=== PATIENT | male | born 1940 | race Caucasian/White ===

== ENCOUNTER 2016-12-11 12:09 | Outpatient (CLI) | payer MEDICARE, OTHER | END 2016-12-11 12:10 | disposition home or self-care (01) | DX: K92.1 Melena (principal) ==

== ENCOUNTER 2016-12-11 12:57 | Inpatient (IN) | payer MEDICARE, OTHER ==
[2016-12-11] MEDS ORDERED: FAMOTIDINE 20 MG/50 ML 50 ML IV ONE ×2 (14:32→14:59)
[2016-12-11] MEDS ORDERED: SODIUM CHLORIDE 0.9% 1,000 ML IV ONE (14:32)
[2016-12-11] MEDS ORDERED: ONDANSETRON ODT 4 MG TABLET TL PRN (14:59)
[2016-12-11] MEDS ORDERED: SODIUM CHLORIDE FLUSH 0.9% 10 ML SYRINGE IVP PRN (14:59)
[2016-12-11] MEDS: PANTOPRAZOLE 40 MG VIAL IVP SCH (16:27)
[2016-12-11] MEDS ORDERED: ALBUTEROL NEB 2.5 MG/3 ML INH PRN (20:18)
[2016-12-11] MEDS ORDERED: rOPINIRole 1 MG TABLET PO SCH (21:00)
[2016-12-11] MEDS: METHADONE 5 MG TABLET PO SCH (21:06)
[2016-12-11] MEDS: SODIUM CHLORIDE FLUSH 0.9% 10 ML SYRINGE IVP SCH (21:07)
[2016-12-11] MEDS ORDERED: ACETAMINOPHEN 325 MG TABLET PO SCH (21:52)
[2016-12-11] MEDS ORDERED: diphenhydrAMINE 25 MG CAPSULE PO SCH (22:20)
[2016-12-12] MEDS: SODIUM CHLORIDE 0.9% 1,000 ML IV SCH ×4 (01:48→23:23)
[2016-12-12] MEDS: SODIUM CHLORIDE FLUSH 0.9% 10 ML SYRINGE IVP SCH ×3 (01:49→20:30)
[2016-12-12] MEDS: PANTOPRAZOLE 40 MG VIAL IVP SCH ×2 (06:34→16:09)
[2016-12-12] MEDS: rOPINIRole 1 MG TABLET PO SCH ×3 (08:43→20:26)
[2016-12-12] MEDS: POLYETHYLENE GLYCOL 3350 17 GM PACKET PO SCH (08:43)
[2016-12-12] MEDS: ACETAMINOPHEN 325 MG TABLET PO PRN ×2 (08:44→20:29)
[2016-12-12] MEDS: LOSARTAN 50 MG TABLET PO SCH (08:45)
[2016-12-12] MEDS: METHADONE 5 MG TABLET PO SCH (20:26)
[2016-12-13] MEDS: SODIUM CHLORIDE 0.9% 1,000 ML IV SCH ×2 (00:02→06:40)
[2016-12-13] MEDS: rOPINIRole 1 MG TABLET PO SCH ×3 (06:00→21:09)
[2016-12-13] MEDS: PANTOPRAZOLE 40 MG VIAL IVP SCH ×2 (06:00→17:00)
[2016-12-13] MEDS: SODIUM CHLORIDE FLUSH 0.9% 10 ML SYRINGE IVP SCH ×3 (06:39→21:09)
[2016-12-13] MEDS: DOCUSATE SODIUM 250 MG CAPSULE PO SCH (08:38)
[2016-12-13] MEDS: LOSARTAN 50 MG TABLET PO SCH (08:39)
[2016-12-13] MEDS: POLYETHYLENE GLYCOL 3350 17 GM PACKET PO SCH (08:39)
[2016-12-13] MEDS: SENNA 8.6 MG TABLET PO SCH (08:39)
[2016-12-13] MEDS: ACETAMINOPHEN 325 MG TABLET PO PRN ×3 (08:39→20:03)
[2016-12-13] MEDS: SODIUM/POTASSIUM/MAG SULFATES 354 ML PREP KIT PO SCH (20:03)
[2016-12-13] MEDS: METHADONE 5 MG TABLET PO SCH (21:09)
[2016-12-14] MEDS: SODIUM CHLORIDE 0.9% 1,000 ML IV SCH ×3 (01:48→09:31)
[2016-12-14] MEDS: PANTOPRAZOLE 40 MG VIAL IVP SCH (06:05)
[2016-12-14] MEDS: SODIUM CHLORIDE FLUSH 0.9% 10 ML SYRINGE IVP SCH ×2 (06:05→13:51)
[2016-12-14] MEDS: rOPINIRole 1 MG TABLET PO SCH ×3 (06:05→16:59)
[2016-12-14] MEDS: SODIUM/POTASSIUM/MAG SULFATES 354 ML PREP KIT PO SCH (07:59)
[2016-12-14] MEDS: LOSARTAN 50 MG TABLET PO SCH (08:16)
[2016-12-14] MEDS: POLYETHYLENE GLYCOL 3350 17 GM PACKET PO SCH (09:34)
[2016-12-14] MEDS: SENNA 8.6 MG TABLET PO SCH (09:34)
[2016-12-14] MEDS: DOCUSATE SODIUM 250 MG CAPSULE PO SCH (09:34)
[2016-12-14] MEDS ORDERED: MIDAZOLAM 2 MG/2 ML VIAL IVP ONE (13:59)
[2016-12-14] MEDS ORDERED: SODIUM CHLORIDE 0.9% 400 ML IV ONE (13:59)
[2016-12-14] MEDS ORDERED: fentaNYL 250 MCG/5 ML VIAL IVP ONE (13:59)
[2016-12-14] MEDS ORDERED: SODIUM CHLORIDE 0.9% 1,000 ML IV ONE ×2 (15:07)
[2016-12-15] MEDS ORDERED: PANTOPRAZOLE 40 MG TABLET PO SCH (07:00)
== END 2016-12-14 18:10 | disposition home or self-care (01) | DRG 378 ==
PROC: 30233N1 Transfusion of Nonautologous Red Blood Cells into Peripheral Vein, Percutaneous Approach (ICD-10-PCS; 2016-12-11)
PROC: 0DJD8ZZ Inspection of Lower Intestinal Tract, Via Natural or Artificial Opening Endoscopic (ICD-10-PCS; principal; 2016-12-14 13:15)
PROC: 0DB68ZX Excision of Stomach, Via Natural or Artificial Opening Endoscopic, Diagnostic (ICD-10-PCS; principal; 2016-12-14 13:15)
DX: K92.1 Melena (principal); D50.0 Iron deficiency anemia secondary to blood loss (chronic); D62 Acute posthemorrhagic anemia; F11.20 Opioid dependence, uncomplicated; I10 Essential (primary) hypertension; Z95.5 Presence of coronary angioplasty implant and graft; G25.81 Restless legs syndrome; Z79.891 Long term (current) use of opiate analgesic; Z87.891 Personal history of nicotine dependence; K59.09 Other constipation; K21.9 Gastro-esophageal reflux disease without esophagitis; K63.89 Other specified diseases of intestine; K57.30 Diverticulosis of large intestine without perforation or abscess without bleeding; K44.9 Diaphragmatic hernia without obstruction or gangrene; K64.8 Other hemorrhoids; M19.90 Unspecified osteoarthritis, unspecified site; Z79.82 Long term (current) use of aspirin

== ENCOUNTER 2016-12-16 09:13 | Emergency (ER) | payer MEDICARE, OTHER ==
[2016-12-16] MEDS ORDERED: FUROSEMIDE 40 MG/4 ML VIAL IVP STA (09:51)
[2016-12-16] MEDS ORDERED: FUROSEMIDE 40 MG/4 ML VIAL ONE (10:26)
== END 2016-12-16 12:50 | disposition home or self-care (01) ==
DX: D50.0 Iron deficiency anemia secondary to blood loss (chronic) (principal); R60.9 Edema, unspecified; I10 Essential (primary) hypertension; I25.10 Atherosclerotic heart disease of native coronary artery without angina pectoris; M19.90 Unspecified osteoarthritis, unspecified site; Z79.82 Long term (current) use of aspirin; Z87.891 Personal history of nicotine dependence

== ENCOUNTER 2016-12-22 09:59 | Outpatient (CLI) | payer MEDICARE, OTHER | END 2016-12-22 10:00 | disposition home or self-care (01) | DX: K92.2 Gastrointestinal hemorrhage, unspecified (principal) ==

== ENCOUNTER 2017-01-15 09:10 | Outpatient (CLI) | payer MEDICARE, OTHER | END 2017-01-15 09:11 | disposition home or self-care (01) | DX: K92.2 Gastrointestinal hemorrhage, unspecified (principal) ==

== ENCOUNTER 2017-05-24 08:48 | Outpatient (CLI) | payer MEDICARE, OTHER ==
[2017-05-24 14:57] LABS: BASOPHILS % (AUTO) 0.5 %; EOSINOPHILS # (AUTO) 0.2 10^3/uL (0.0-0.7); EOSINOPHILS % (AUTO) 4.2 %; HCT - HEMATOCRIT 44.4 % (42.0-52.0); HGB - HEMOGLOBIN 14.9 g/dL (14.0-18.0); LYMPHOCYTES % (AUTO) 19.9 %; MEAN CORPUSCULAR HEMOGLOBIN 31.2 pg (27.0-31.0); MEAN CORPUSCULAR HGB CONC 33.5 g/dL (32.0-36.0); MEAN CORPUSCULAR VOLUME 93.1 fL (80.0-94.0); MEAN PLATELET VOLUME 9.1 fL (7.4-11.4); MONOCYTES # (AUTO) 0.6 10^3/uL (0.0-1.0); MONOCYTES % (AUTO) 11.2 %; NEUTROPHILS # (AUTO) 3.3 10^3/uL (1.5-6.6); NEUTROPHILS % (AUTO) 64.2 %; RED BLOOD COUNT 4.76 10^6/uL (4.70-6.10); RED CELL DISTRIBUTION WIDTH 14.7 % (12.0-15.0); UNCORRECTED WHITE BLOOD COUNT 5.2 x10^3/uL; WHITE BLOOD COUNT 5.2 x10^3/uL (4.8-10.8)
[2017-05-24 15:13] LABS: ALBUMIN/GLOBULIN RATIO 1.5 (1.0-2.2); BILIRUBIN,TOTAL 1.1 mg/dL (0.2-1.0); BUN - BLOOD UREA NITROGEN 21 mg/dL (6-20); CALCIUM 9.2 mg/dL (8.5-10.3); CARBON DIOXIDE - CO2 29 mmol/L (21-32); CHLORIDE 100 mmol/L (101-111); CHOL/HDL RATIO 2.4 (<5.0); CHOLESTEROL 140 mg/dL; CREATININE 0.9 mg/dL (0.6-1.2); GFR - MDRD 82 (>89); GLUCOSE 72 mg/dL (70-100); HDL CHOLESTEROL 58 mg/dL; LDL/HDL RATIO 1.1 (<3.6); SODIUM 136 mmol/L (135-145); TRIGLYCERIDES 90 mg/dL; VLDL CHOLESTEROL 18 mg/dL
== END 2017-05-24 08:49 | disposition home or self-care (01) ==
LOC: LAB.R 08:48
PROVIDERS: ATTEND Internal Medicine
DX: K29.50 Unspecified chronic gastritis without bleeding (principal); I25.10 Atherosclerotic heart disease of native coronary artery without angina pectoris; I10 Essential (primary) hypertension; E78.5 Hyperlipidemia, unspecified; G25.81 Restless legs syndrome; Z79.899 Other long term (current) drug therapy
CPT/HCPCS: 80053; 80061; 82728; 85025

== ENCOUNTER 2018-06-17 08:00 | Outpatient (CLI) | payer MEDICARE, OTHER ==
[2018-06-17 13:59] LABS: BASOPHILS % (AUTO) 0.3 %; EOSINOPHILS # (AUTO) 0.1 10^3/uL (0.0-0.7); HGB - HEMOGLOBIN 15.5 g/dL (14.0-18.0); LYMPHOCYTES % (AUTO) 10.2 %; MEAN CORPUSCULAR HEMOGLOBIN 32.9 pg (27.0-31.0); MEAN CORPUSCULAR HGB CONC 34.3 g/dL (32.0-36.0); MEAN PLATELET VOLUME 8.9 fL (7.4-11.4); MONOCYTES % (AUTO) 9.5 %; NEUTROPHILS # (AUTO) 8.1 10^3/uL (1.5-6.6); PLT - PLATELET COUNT 255 10^3/uL (130-450); RED CELL DISTRIBUTION WIDTH 13.2 % (12.0-15.0); WHITE BLOOD COUNT 10.3 x10^3/uL (4.8-10.8)
[2018-06-17 14:10] LABS: ALBUMIN/GLOBULIN RATIO 1.2 (1.0-2.2); ALKALINE PHOSPHATASE 49 IU/L (42-121); ALT ALANINE AMINOTRANSFERASE 27 IU/L (10-60); AST ASPARTATE AMINOTRANSFERASE 25 IU/L (10-42); BILIRUBIN,TOTAL 1.1 mg/dL (0.2-1.0); BUN - BLOOD UREA NITROGEN 20 mg/dL (6-20); CALCIUM 9.1 mg/dL (8.5-10.3); CARBON DIOXIDE - CO2 28 mmol/L (21-32); CHLORIDE 97 mmol/L (101-111); CHOL/HDL RATIO 2.7 (<5.0); CHOLESTEROL 137 mg/dL; CREATININE 0.9 mg/dL (0.6-1.2); GFR - MDRD 81 (>89); GLUCOSE 86 mg/dL (70-100); HDL CHOLESTEROL 50 mg/dL; LDL CHOLESTEROL,CALCULATED 68 mg/dL; LDL/HDL RATIO 1.4 (<3.6); SODIUM 132 mmol/L (135-145); TOTAL PROTEIN 7.3 g/dL (6.7-8.2); VLDL CHOLESTEROL 19 mg/dL
== END 2018-06-17 08:01 | disposition home or self-care (01) ==
LOC: LAB.R 08:00
PROVIDERS: ATTEND Internal Medicine
DX: I25.10 Atherosclerotic heart disease of native coronary artery without angina pectoris (principal); E78.5 Hyperlipidemia, unspecified; Z79.899 Other long term (current) drug therapy; Z12.5 Encounter for screening for malignant neoplasm of prostate; I10 Essential (primary) hypertension
CPT/HCPCS: 80053; 80061; 85025; G0103; 83721; 84153

== ENCOUNTER 2018-11-29 09:07 | Outpatient (CLI) | payer MEDICARE, OTHER | END 2018-11-29 09:08 | disposition home or self-care (01) | LOC: LAB 09:07 | PROVIDERS: ATTEND Family Medicine | DX: K29.50 Unspecified chronic gastritis without bleeding (principal); G25.81 Restless legs syndrome | CPT/HCPCS: 36415; 82728 ==

== ENCOUNTER 2019-09-17 09:03 | Outpatient (CLI) | payer MEDICARE, OTHER ==
[2019-09-17] MEDS ORDERED: BARIUM SULFATE 148 GM POWDER PO ONE (10:21)
[2019-09-17] MEDS ORDERED: BARIUM SULFATE 176 GM BOTTLE PO ONE (10:21)
[2019-09-17] MEDS ORDERED: SIMETHICONE/SOD BICARB/CIT AC 1 EACH PACKET PO ONE (10:21)
--- NOTE | 2019-09-17 17:45 | XRAY Report ---
Reason: REFLUX,ESOPHAGEAL,STRICTURE Procedure Date: 09/17/2019 Accession Number: [id number] / [id number] Procedure: FL - Esophogram CPT Code: Final Report FULL RESULT: EXAM: ESOPHAGRAM, FLUOROSCOPIC GUIDANCE EXAM DATE: 09/17/2019 09:22 AM. CLINICAL HISTORY: Reflux, esophageal stricture. COMPARISON: None. TECHNIQUE: Standard esophagram performed with thin and thick barium. Fluoroscopy Time: 2 minutes 24 seconds Images: 34. FINDINGS: The swallowing mechanism is initiated normally and the column of barium flows through the esophagus and into the stomach. A moderately large sliding hiatal spontaneous gastroesophageal reflux occurs, accentuated in the prone position. Moderate esophageal spasm occurs throughout the duration of the examination limiting full characterization of the mucosal surface. IMPRESSION: 1. Moderate sliding hiatal hernia with secondary gastroesophageal reflux. 2. Esophageal spasm throughout the duration of the examination limiting detailed evaluation of the mucosal surface. Consider endoscopy if warranted. RADIA
== END 2019-09-17 09:04 | disposition home or self-care (01) ==
LOC: DI 09:03
PROVIDERS: ATTEND Family Medicine
DX: K44.9 Diaphragmatic hernia without obstruction or gangrene (principal); K21.9 Gastro-esophageal reflux disease without esophagitis; K22.4 Dyskinesia of esophagus
CPT/HCPCS: 74220; A9270

== ENCOUNTER 2020-02-23 11:41 | Outpatient (CLI) | payer MEDICARE, OTHER ==
[2020-02-23 12:08] LABS: BASOPHILS % (AUTO) 0.2 %; EOSINOPHILS # (AUTO) 0.2 10^3/uL (0.0-0.7); EOSINOPHILS % (AUTO) 2.8 %; HGB - HEMOGLOBIN 14.4 g/dL (14.0-18.0); LYMPHOCYTES # (AUTO) 1.1 10^3/uL (1.5-3.5); LYMPHOCYTES % (AUTO) 18.2 %; MEAN CORPUSCULAR HGB CONC 33.2 g/dL (32.0-36.0); MEAN CORPUSCULAR VOLUME 93.5 fL (80.0-94.0); MEAN PLATELET VOLUME 10.5 fL (7.4-11.4); MONOCYTES # (AUTO) 0.7 10^3/uL (0.0-1.0); MONOCYTES % (AUTO) 10.8 %; NEUTROPHILS # (AUTO) 4.1 10^3/uL (1.5-6.6); NEUTROPHILS % (AUTO) 67.7 %; PLT - PLATELET COUNT 186 10^3/uL (130-450); RED BLOOD COUNT 4.64 10^6/uL (4.70-6.10); RED CELL DISTRIBUTION WIDTH 12.6 % (12.0-15.0); WHITE BLOOD COUNT 6.1 x10^3/uL (4.8-10.8)
[2020-02-23 12:24] LABS: ALBUMIN 4.2 g/dL (3.2-5.5); ALBUMIN/GLOBULIN RATIO 1.4 (1.0-2.2); CALCIUM 9.2 mg/dL (8.5-10.3); TOTAL PROTEIN 7.1 g/dL (6.7-8.2)
== END 2020-02-23 11:42 | disposition home or self-care (01) ==
LOC: LAB 11:41
PROVIDERS: ATTEND Family Medicine
DX: I10 Essential (primary) hypertension (principal); K21.9 Gastro-esophageal reflux disease without esophagitis; F11.10 Opioid abuse, uncomplicated; M47.892 Other spondylosis, cervical region; G25.9 Extrapyramidal and movement disorder, unspecified
CPT/HCPCS: 36415; 80053; 84443; 85025

== ENCOUNTER 2020-08-27 09:18 | Emergency (ER) | payer MEDICARE, OTHER ==
[2020-08-27 09:56] LABS: BASOPHILS % (AUTO) 0.3 %; EOSINOPHILS # (AUTO) 0.2 10^3/uL (0.0-0.7); EOSINOPHILS % (AUTO) 2.9 %; HGB - HEMOGLOBIN 14.8 g/dL (14.0-18.0); LYMPHOCYTES % (AUTO) 16.2 %; MEAN CORPUSCULAR HEMOGLOBIN 32.2 pg (27.0-31.0); MEAN CORPUSCULAR HGB CONC 34.1 g/dL (32.0-36.0); MEAN CORPUSCULAR VOLUME 94.3 fL (80.0-94.0); MEAN PLATELET VOLUME 10.2 fL (7.4-11.4); MONOCYTES # (AUTO) 0.7 10^3/uL (0.0-1.0); MONOCYTES % (AUTO) 11.4 %; NEUTROPHILS # (AUTO) 4.3 10^3/uL (1.5-6.6); NEUTROPHILS % (AUTO) 68.9 %; PLT - PLATELET COUNT 202 10^3/uL (130-450); RED CELL DISTRIBUTION WIDTH 12.2 % (12.0-15.0); WHITE BLOOD COUNT 6.3 x10^3/uL (4.8-10.8)
[2020-08-27 10:06] LABS: CALCIUM 9.1 mg/dL (8.5-10.3)
--- NOTE | 2020-08-27 10:50 | ED Physician Documentation ---
PD HPI LOWER EXT INJURY - Stated complaint Stated Complaint: RT LEG PX/SWELLING - Chief complaint Chief Complaint: Ext Problem - History obtained from History obtained from: Patient - History of Present Illness PD HPI LOW EXT INJURY LOCATION: Right, Lower leg, Ankle Type of injury: No: Fall, Twist (He noted onset of some pain in the right calf after a couple of long hikes 2 weeks ago. The pain has continued some with walking and he noticed some edema around the ankle. He presumed he overuse the muscles and would improve. However has persisted and increased swelling in le g/ankle few days.) Where injury occurred: Home Timing - onset: How many weeks ago (2) Timing - details: Gradual onset, Still present, Waxing and waning Improved by: Rest, Other (he says it actually feels better walking, feels stiff when first gets up and moving. Rest is good though.) Worsened by: Palpating. No: Moving Associated symptoms: Swelling. No: Weakness, Numbness, Discolored Contributing factors: No: Anticoagulated Similar symptoms before: Has not had sx before Recently seen: Not recently seen Review of Systems Constitutional: denies: Fever Nose: denies: Rhinorrhea / runny nose, Congestion Throat: denies: Sore throat Cardiac: denies: Chest pain / pressure, Palpitations Respiratory: reports: Dyspnea (some on exertion for several months). denies: Cough GI: denies: Nausea, Vomiting, Diarrhea Skin: denies: Rash, Lesions Neurologic: denies: Focal weakness, Numbness PD PAST MEDICAL HISTORY - Past Medical History Cardiovascular: Hypertension, Other (does not take statin meds) Respiratory: None Endocrine/Autoimmune: None GI: Chronic constipation : None HEENT: Chronic vision loss Psych: None Musculoskeletal: Osteoarthritis, Other Derm: None - Past Surgical History Past Surgical History: No Cardiovascular: Coronary stent - Present Medications Home Medications: Ambulatory Orders Medication Instructions Recorded Confirmed Methadone 2.5 - 5 mg PO QPM 09/24/13 12/16/16 Ropinirole HCl 1 mg PO TID 09/24/13 12/16/16 Losartan [Cozaar] 100 mg PO DAILY 08/16/15 12/16/16 Omeprazole 08/27/20 08/27/20 - Allergies Allergies/Adverse Reactions: Allergies Allergy/AdvReac Type Severity Reaction Status Date / Time No Known Drug Allergies Allergy Verified 08/27/20 09:29 - Social History Does the pt smoke?: No Smoking Status: Never smoker Does the pt drink ETOH?: Yes ETOH Use: Wine Does the pt have substance abuse?: No PD ED PE NORMAL - Vitals Vital signs reviewed: Yes - General General: Alert and oriented X 3, No acute distress, Well developed/nourished - Cardiac Cardiac: RRR, No murmur - Respiratory Respiratory: Clear bilaterally - Derm Derm: Normal color, Warm and dry - Extremities Extremities: Other (There is mild edema in the right lower leg and ankle. There is a bit of fullness in the calf and mild tenderness in the muscle to palpation. The left side is not tender and without any edema.) - Neuro Neuro: No motor deficit, No sensory deficit, Other (Good pulses color and capillary refill in the ankle and toes) Results - Vitals Vitals: Vital Signs - 24 hr 08/27/20 09:27 Temperature 36.6 C Heart Rate 68 Respiratory 18 Rate Blood Pressure 148/68 H O2 Saturation 99 Oxygen O2 Source Room air - Labs Labs: Laboratory Tests 08/27/20 08/27/20 08/27/20 09:50 09:50 09:50 WBC 6.3 RBC 4.60 L Hgb 14.8 Hct 43.4 MCV 94.3 H MCH 32.2 H MCHC 34.1 RDW 12.2 Plt Count 202 MPV 10.2 Neut # (Auto) 4.3 Lymph # (Auto) 1.0 L Charles # (Auto) 0.7 Eos # (Auto) 0.2 Baso # (Auto) 0.0 Absolute Nucleated RBC 0.00 Nucleated RBC % 0.0 ESR 7 Sodium 136 Potassium 4.2 Chloride 102 Carbon Dioxide 24 Anion Gap 10.0 BUN 23 H Creatinine 1.0 Estimated GFR (MDRD) 72 L Glucose 127 H Calcium 9.1 Total Creatine Kinase 56 B-Natriuretic Peptide 08/27/20 09:50 WBC RBC Hgb Hct MCV MCH MCHC RDW Plt Count MPV Neut # (Auto) Lymph # (Auto) Charles # (Auto) Eos # (Auto) Baso # (Auto) Absolute Nucleated RBC Nucleated RBC % ESR Sodium Potassium Chloride Carbon Dioxide Anion Gap BUN Creatinine Estimated GFR (MDRD) Glucose Calcium Total Creatine Kinase B-Natriuretic Peptide 182 H - Rads (name of study) duplex lower leg Radiology: See rad report, Other (discussed with tech - no DVT) PD MEDICAL DECISION MAKING - ED course Complexity details: reviewed results (Labs are normal. He states he actually feels better walking around so sounds like muscle stiffness. Does not sound like compartment syndrome. Not much pain with walking but aching later.), considered differential (Consider DVT and can get ultrasound. Consider myositis or muscle breakdown and can get some labs. Does not seem like fluid overload in general but can check creatinine and BNP. Presume muscle strain with some local inflammation and impedance of venous return.), d/w patient Departure - Departure Disposition: 01 Home, Self Care Clinical Impression: Strain of right calf muscle, Lower leg edema Clinical Impression: (Ruled Out): Deep vein thrombosis Condition: Stable Record reviewed to determine appropriate education?: Yes Instructions: ED Strain Muscle Ext Follow-Up: Endy Dickerson MD [Primary Care Provider] - Comments: No signs of blood clots nor muscle breakdown nor significant inflammation systemically. No signs of heart failure on your blood tests or an ultrasound. It sounds like you developed some inflammation or strain of the muscle in the calf and is just causing persistent pain and swelling. Elevate and rest your leg periodically through the day. Use a compressive sock or wrap to help with swelling in the ankle and leg. Consider an anti-inflammatory such as ibuprofen 400 mg 2-3 times a day for the next week or so. Tylenol if needed for pain. Recheck if not improved fully over the next week or so. Return if worsening
[2020-08-27 10:58] VITALS: BP 130/68
--- NOTE | 2020-08-27 11:03 | Ultrasound Report ---
PROCEDURE: Duplex Ext Veins Right INDICATIONS: right calf/lower leg swelling and pain for days/wk TECHNIQUE: Real-time imaging, as well as color and pulse Doppler interrogation, were performed of the lower extr emity deep veins from the inguinal ligament to the popliteal fossa. COMPARISON: None. FINDINGS: The deep veins are normally compressible, and free of intraluminal thrombus. Color and pu lse Doppler demonstrate normal phasic intraluminal flow. There is normal augmentation response to di stal compression maneuver. IMPRESSION: No sonographic evidence of DVT. Reviewed by: Parvez Moreno MD on 08/27/2020 10:01 AM [facility] Approved by: Parvez Moreno MD on 08/27/2020 10:01 AM [facility] Station ID: [id number]
== END 2020-08-27 11:07 | disposition home or self-care (01) ==
LOC: ED 09:18
DX: S86.911A Strain of unspecified muscle(s) and tendon(s) at lower leg level, right leg, initial encounter (principal); X58.XXXA Exposure to other specified factors, initial encounter; Y93.01 Activity, walking, marching and hiking; I10 Essential (primary) hypertension
CPT/HCPCS: 36415; 80048; 82550; 83880; 85025; 85651; 99284

== ENCOUNTER 2021-01-15 23:09 | Outpatient (CLI) | payer MEDICARE, OTHER | END 2021-01-15 23:10 | disposition EMS.NT | LOC: EMS 23:09 | DX: M25.561 Pain in right knee (principal) ==

== ENCOUNTER 2021-01-15 23:57 | Emergency (ER) | payer MEDICARE, OTHER ==
[2021-01-16] MEDS ORDERED: CHERRY SYRUP 10 ML UDC PO ONE (01:06)
[2021-01-16] MEDS ORDERED: KETOROLAC 60 MG/2 ML VIAL IM STA (01:06)
[2021-01-16] MEDS ORDERED: DEXAMETHASONE 10 MG/ML VIAL PO STA (01:06)
--- NOTE | 2021-01-16 01:07 | ED Physician Documentation ---
PD HPI LOWER EXT INJURY - Stated complaint Stated Complaint: R KNEE PX - Chief complaint Chief Complaint: Ext Problem - History obtained from History obtained from: Patient - History of Present Illness PD HPI LOW EXT INJURY LOCATION: Right, Knee Type of injury: Other (over use in the garden yesterday) Where injury occurred: Home Timing - onset: How many days ago (1) Timing - duration: Days (1) Timing - details: Gradual onset, Still present Improved by: Rest, Immobilization Worsened by: Moving, Palpating, Other (wieght bearing) Associated symptoms: Swelling. No: Weakness, Numbness, Tingling Contributing factors: No: Anticoagulated Similar symptoms before: Has not had sx before Recently seen: Not recently seen - Additional information Additional information: 80-year-old male with a history of hypertension and restless leg syndrome Was working out in his garden the day before yesterday and up and down a ladder as well and he has developed acute right knee pain. He is unable to bear weight on his knee and he has pain even with motion or movement of the of the knee. Review of Systems Constitutional: denies: Fever Eyes: denies: Decreased vision Ears: denies: Ear pain Nose: denies: Congestion Throat: denies: Sore throat Cardiac: denies: Chest pain / pressure Respiratory: denies: Cough GI: denies: Vomiting PD PAST MEDICAL HISTORY - Past Medical History Past Medical History: Yes Cardiovascular: Hypertension, Other Respiratory: None Endocrine/Autoimmune: None GI: Chronic constipation : None HEENT: Chronic vision loss Psych: None Musculoskeletal: Osteoarthritis, Other Derm: None Other Past Medical History: RLS - Past Surgical History Past Surgical History: No Cardiovascular: Coronary stent - Present Medications Home Medications: Ambulatory Orders Medication Instructions Recorded Confirmed Methadone [Methadone Hcl] 2.5 - 5 mg PO QPM 09/24/13 01/16/21 Ropinirole HCl 1 mg PO TID 09/24/13 01/16/21 Losartan [Cozaar] 100 mg PO DAILY 08/16/15 01/16/21 Omeprazole 40 mg PO DAILY 08/27/20 01/16/21 Aspirin Chewable [[place] 81 mg PO DAILY 01/16/21 01/16/21 Aspirin] Gabapentin [Neurontin] 100 mg PO DAILY 01/16/21 01/16/21 HYDROcod/ACETAM 5/325 [[place] 5/325] 1 - 2 tablet PO Q6H PRN #14 tablet 01/16/21 - Allergies Allergies/Adverse Reactions: Allergies Allergy/AdvReac Type Severity Reaction Status Date / Time No Known Drug Allergies Allergy Verified 01/16/21 00:10 - Social History Does the pt smoke?: No Smoking Status: Never smoker Does the pt drink ETOH?: Yes Does the pt have substance abuse?: No - Immunizations Immunizations are current?: Yes - POLST Patient has POLST: No PD ED PE NORMAL - Vitals Vital signs reviewed: Yes (hypertensive ) - General General: Alert and oriented X 3, No acute distress, Well developed/nourished - HEENT HEENT: Atraumatic, PERRL, EOMI - Respiratory Respiratory: No respiratory distress - Derm Derm: Normal color, Warm and dry, No rash - Extremities Extremities: No deformity, No edema, Other (The right knee is examined there is a palpable effusion. The patella is not ballotable. The ligaments are stable to testing. The joint is not warm or erythematous. The knee itself is not tender.) Results - Vitals Vitals: Vital Signs - 24 hr 01/16/21 00:07 Temperature 36.3 C L Heart Rate 56 L Respiratory 16 Rate Blood Pressure 149/85 H O2 Saturation 99 Oxygen O2 Source Room air - Rads (name of study) Knee Radiology: Prelim report reviewed (Impression: No acute findings. Nonemergent/incidental findings in the report.), EMP read indepedently, See rad report PD MEDICAL DECISION MAKING - ED course Complexity details: reviewed results, re-evaluated patient, considered differential, d/w patient ED course: 80-year-old male with acute knee pain unable to bear weight has a palpable effusion that does not show up on plain film x-ray he has minimal arthritis in his knee he does have some meniscal chondrocalcinosis. He appears to have pain related to overuse and he is administered 10 mg of dexamethasone orally and 60 mg of Toradol IM with some improvement in his pain. We will place patient onto some crutches and expect resolution in the next 2 to 3 days. I have provided some narcotic pain reliever for the patient as he is having some difficulty sleeping. I have referred the patient to orthopedics. Departure - Departure Disposition: 01 Home, Self Care Clinical Impression: Arthritis of knee, right Condition: Stable Instructions: ED Degenerative Joint Disease Follow-Up: Endy Dickerson MD [Primary Care Provider] - Jerome Goddard MD [Provider Admit Priv/Credential] - Prescriptions: HYDROcod/ACETAM 5/325 [[place] 5/325] 1 - 2 tablet PO Q6H PRN #14 tablet PRN Reason: Pain
[2021-01-16] MEDS ORDERED: HYDROcod/ACET 5/325 Prepack 4 PO STA (02:53)
[2021-01-16 03:34] VITALS: BP 142/86
--- NOTE | 2021-01-16 08:10 | XRAY Report ---
PROCEDURE: Knee 4 View RT INDICATIONS: pain and swelling after excessive use TECHNIQUE: 4 views of the right knee(s) were acquired. COMPARISON: None. FINDINGS: Bones: No fractures or dislocations. No suspicious bony lesions. Mild underlying degenerative goldberg ges are seen. Soft tissues: No joint effusion. Calcification is seen along the medial and lateral joint spaces, wh ich is attributed to meniscal calcification. IMPRESSION: No significant knee plain film abnormality is seen. No joint effusion. If there is strong clinical concern for internal derangement of the knee, please consider a dedicated , scheduled knee MRI for further evaluation (assuming that there is no contraindication). Note: No significant discrepancy from the preliminary report. Reviewed by: Casey Mayberry MD on 01/16/2021 7:09 AM [facility] Approved by: Casey Mayberry MD on 01/16/2021 7:09 AM [facility] Station ID: [id number]
== END 2021-01-16 03:30 | disposition home or self-care (01) ==
LOC: ED 23:57
DX: M17.11 Unilateral primary osteoarthritis, right knee (principal); I10 Essential (primary) hypertension; G25.81 Restless legs syndrome; H54.7 Unspecified visual loss; Z79.899 Other long term (current) drug therapy; Z79.82 Long term (current) use of aspirin
CPT/HCPCS: 73564; 96372; 99283; 99284; A9270

== ENCOUNTER 2021-02-24 10:31 | Outpatient (CLI) | payer MEDICARE, OTHER ==
--- NOTE | 2021-02-24 12:48 | XRAY Report ---
PROCEDURE: Knee 4 View RT INDICATIONS: INJURY OF RIGHT KNEE TECHNIQUE: AP view of both knees and lateral and patellar views of the right knee. COMPARISON: None. FINDINGS: Bones: No fractures or dislocations. No suspicious bony lesions. Soft tissues: No joint effusion. No suspicious soft tissue calcifications. Both knees demonstrate chondrocalcinosis in the medial and lateral compartments IMPRESSION: 1. No acute abnormality. 2. Chondrocalcinosis. Reviewed by: Jaspal Everett on 02/24/2021 12:47 PM PDT Approved by: Jaspal Everett on 02/24/2021 12:47 PM PDT Station ID: [id number]
== END 2021-02-24 23:59 | disposition home or self-care (01) ==
LOC: DI.N 10:31
PROVIDERS: ATTEND Physician Assistant
DX: M23.261 Derangement of other lateral meniscus due to old tear or injury, right knee (principal); M11.261 Other chondrocalcinosis, right knee

== ENCOUNTER 2021-08-17 08:20 | Outpatient (CLI) | payer MEDICARE, OTHER ==
[2021-08-17 08:41] LABS: BASOPHILS % (AUTO) 0.5 %; EOSINOPHILS # (AUTO) 0.2 10^3/uL (0.0-0.7); EOSINOPHILS % (AUTO) 3.5 %; HCT - HEMATOCRIT 44.2 % (42.0-52.0); HGB - HEMOGLOBIN 15.2 g/dL (14.0-18.0); LYMPHOCYTES # (AUTO) 1.1 10^3/uL (1.5-3.5); LYMPHOCYTES % (AUTO) 17.3 %; MEAN CORPUSCULAR HEMOGLOBIN 32.4 pg (27.0-31.0); MEAN CORPUSCULAR HGB CONC 34.4 g/dL (32.0-36.0); MEAN CORPUSCULAR VOLUME 94.2 fL (80.0-94.0); MEAN PLATELET VOLUME 9.7 fL (7.4-11.4); MONOCYTES # (AUTO) 0.7 10^3/uL (0.0-1.0); NEUTROPHILS # (AUTO) 4.2 10^3/uL (1.5-6.6); NEUTROPHILS % (AUTO) 67.4 %; PLT - PLATELET COUNT 202 10^3/uL (130-450); RED BLOOD COUNT 4.69 10^6/uL (4.70-6.10); RED CELL DISTRIBUTION WIDTH 12.3 % (12.0-15.0); WHITE BLOOD COUNT 6.3 x10^3/uL (4.8-10.8)
[2021-08-17 09:19] LABS: ALBUMIN/GLOBULIN RATIO 1.5 (1.0-2.2); ALKALINE PHOSPHATASE 54 IU/L (42-121); ALT ALANINE AMINOTRANSFERASE 18 IU/L (10-60); AST ASPARTATE AMINOTRANSFERASE 20 IU/L (10-42); BILIRUBIN,TOTAL 1.1 mg/dL (0.2-1.0); BUN - BLOOD UREA NITROGEN 23 mg/dL (6-20); CALCIUM 9.4 mg/dL (8.5-10.3); CARBON DIOXIDE - CO2 28 mmol/L (21-32); CHLORIDE 101 mmol/L (101-111); CHOL/HDL RATIO 3.5 (<5.0); CHOLESTEROL 164 mg/dL; GFR - MDRD 72 (>89); GLUCOSE 97 mg/dL (70-100); HDL CHOLESTEROL 47 mg/dL; LDL CHOLESTEROL,CALCULATED 101 mg/dL; LDL/HDL RATIO 2.1 (<3.6); POTASSIUM 4.4 mmol/L (3.5-5.0); SODIUM 136 mmol/L (135-145); TOTAL PROTEIN 6.7 g/dL (6.7-8.2); TRIGLYCERIDES 79 mg/dL; VLDL CHOLESTEROL 16 mg/dL
[2021-08-17 09:32] LABS: THYROID STIMULATING HORMONE 2.27 uIU/mL (0.34-5.60)
== END 2021-08-17 08:21 | disposition home or self-care (01) ==
LOC: LAB 08:20
PROVIDERS: ATTEND Family Medicine
DX: M17.0 Bilateral primary osteoarthritis of knee (principal); G25.9 Extrapyramidal and movement disorder, unspecified; I10 Essential (primary) hypertension
CPT/HCPCS: 36415; 80053; 80061; 83721; 84153; 84443; 85025

== ENCOUNTER 2022-08-25 07:46 | Outpatient (CLI) | payer MEDICARE, OTHER ==
[2022-08-25 08:14] LABS: BASOPHILS % (AUTO) 0.2 %; EOSINOPHILS # (AUTO) 0.2 10^3/uL (0.0-0.7); HCT - HEMATOCRIT 43.2 % (42.0-52.0); HGB - HEMOGLOBIN 14.3 g/dL (14.0-18.0); LYMPHOCYTES % (AUTO) 19.8 %; MEAN CORPUSCULAR HEMOGLOBIN 31.6 pg (27.0-31.0); MEAN CORPUSCULAR HGB CONC 33.1 g/dL (32.0-36.0); MEAN CORPUSCULAR VOLUME 95.6 fL (80.0-94.0); MEAN PLATELET VOLUME 10.6 fL (7.4-11.4); MONOCYTES # (AUTO) 0.7 10^3/uL (0.0-1.0); MONOCYTES % (AUTO) 13.3 %; NEUTROPHILS # (AUTO) 3.1 10^3/uL (1.5-6.6); NEUTROPHILS % (AUTO) 62.3 %; PLT - PLATELET COUNT 169 10^3/uL (130-450); RED BLOOD COUNT 4.52 10^6/uL (4.70-6.10); RED CELL DISTRIBUTION WIDTH 12.9 % (12.0-15.0)
[2022-08-25 08:35] LABS: ALBUMIN 3.9 g/dL (3.2-5.5); ALBUMIN/GLOBULIN RATIO 1.6 (1.0-2.2); ALKALINE PHOSPHATASE 63 IU/L (42-121); ALT ALANINE AMINOTRANSFERASE 17 IU/L (10-60); AST ASPARTATE AMINOTRANSFERASE 19 IU/L (10-42); BILIRUBIN,TOTAL 0.9 mg/dL (0.2-1.0); BUN - BLOOD UREA NITROGEN 27 mg/dL (6-20); CARBON DIOXIDE - CO2 29 mmol/L (21-32); CHLORIDE 102 mmol/L (101-111); CHOLESTEROL 88 mg/dL; GFR - MDRD 71 (>89); GLUCOSE 99 mg/dL (70-100); HDL CHOLESTEROL 44 mg/dL; LDL CHOLESTEROL,CALCULATED 34 mg/dL; LDL/HDL RATIO 0.8 (<3.6); POTASSIUM 4.4 mmol/L (3.5-5.0); SODIUM 138 mmol/L (135-145); TOTAL PROTEIN 6.4 g/dL (6.7-8.2); TRIGLYCERIDES 52 mg/dL; VLDL CHOLESTEROL 10 mg/dL
[2022-08-25 08:36] LABS: THYROID STIMULATING HORMONE 1.47 uIU/mL (0.34-5.60)
== END 2022-08-25 07:47 | disposition home or self-care (01) ==
LOC: LAB 07:46
PROVIDERS: ATTEND Family Medicine
DX: I10 Essential (primary) hypertension (principal); E83.10 Disorder of iron metabolism, unspecified; G25.81 Restless legs syndrome
CPT/HCPCS: 36415; 80053; 80061; 82728; 83721; 84443; 85025

== ENCOUNTER 2022-09-07 09:50 | Outpatient (CLI) | payer MEDICARE, OTHER ==
--- NOTE | 2022-09-07 10:42 | XRAY Report ---
PROCEDURE: Lumbar Spine Complete INDICATIONS: DEGENERATIVE DISC DISEASE TECHNIQUE: 4 views of the lumbar spine were acquired. COMPARISON: None FINDINGS: Bones: There are 5 lumbar-type vertebral bodies. Trace levoconvex spinal curvature at L4-L5. Moderate degenerative changes, with disc space height loss, facet arthropathy, and osteophytes. This is most notable at L4-L5 and L5-S1. There is trace retrolisthesis of L5 on S1, L4 on L5, L3 on L4, and L2 on L3. Oblique views are not well seen due to overlapping bowel gas and osseous embolization. Soft tissues: Vascular calcifications and moderate fecal loading. IMPRESSION: Moderate spondylosis and multilevel spondylolisthesis. If there is high concern for further derangeme nt, consider MRI evaluation. Reviewed by: Allan Zhang MD on 09/07/2022 10:41 AM PST Approved by: Allan Zhang MD on 09/07/2022 10:41 AM [facility] Station ID: [id number]
== END 2022-09-07 09:51 | disposition home or self-care (01) ==
LOC: DI 09:50
PROVIDERS: ATTEND Family Medicine
DX: M43.16 Spondylolisthesis, lumbar region (principal)

== ENCOUNTER 2022-11-17 15:14 | Outpatient (CLI) | payer MEDICARE, OTHER ==
[2022-11-17 15:31] LABS: BASOPHILS % (AUTO) 0.3 %; EOSINOPHILS # (AUTO) 0.2 10^3/uL (0.0-0.7); EOSINOPHILS % (AUTO) 2.9 %; HCT - HEMATOCRIT 42.1 % (42.0-52.0); HGB - HEMOGLOBIN 13.9 g/dL (14.0-18.0); LYMPHOCYTES # (AUTO) 1.3 10^3/uL (1.5-3.5); LYMPHOCYTES % (AUTO) 18.3 %; MEAN CORPUSCULAR HEMOGLOBIN 31.3 pg (27.0-31.0); MEAN CORPUSCULAR VOLUME 94.8 fL (80.0-94.0); MEAN PLATELET VOLUME 10.3 fL (7.4-11.4); MONOCYTES # (AUTO) 0.7 10^3/uL (0.0-1.0); MONOCYTES % (AUTO) 9.9 %; NEUTROPHILS # (AUTO) 4.8 10^3/uL (1.5-6.6); NEUTROPHILS % (AUTO) 68.5 %; PLT - PLATELET COUNT 208 10^3/uL (130-450); RED BLOOD COUNT 4.44 10^6/uL (4.70-6.10); RED CELL DISTRIBUTION WIDTH 12.4 % (12.0-15.0)
[2022-11-17 15:51] LABS: ALBUMIN 3.6 g/dL (3.2-5.5); ALBUMIN/GLOBULIN RATIO 1.2 (1.0-2.2); BILIRUBIN,TOTAL 0.6 mg/dL (0.2-1.0); CALCIUM 9.3 mg/dL (8.5-10.3); POTASSIUM 4.2 mmol/L (3.5-5.0); TOTAL PROTEIN 6.5 g/dL (6.7-8.2)
== END 2022-11-17 15:15 | disposition home or self-care (01) ==
LOC: LAB 15:14
PROVIDERS: ATTEND Family Medicine
DX: E83.10 Disorder of iron metabolism, unspecified (principal)
CPT/HCPCS: 36415; 80053; 82728; 84443; 85025

== ENCOUNTER 2023-03-07 09:14 | Outpatient (CLI) | payer MEDICARE, OTHER ==
[2023-03-07 09:47] LABS: ALBUMIN 3.8 g/dL (3.2-5.5); BILIRUBIN,DIRECT 0.2 mg/dL (0.1-0.5); BILIRUBIN,TOTAL 0.9 mg/dL (0.2-1.0); CREATININE 0.9 mg/dL (0.6-1.2); TOTAL PROTEIN 6.5 g/dL (6.7-8.2)
== END 2023-03-07 09:15 | disposition home or self-care (01) ==
LOC: LAB 09:14
PROVIDERS: ATTEND Physician Assistant Medical
DX: B35.1 Tinea unguium (principal)
CPT/HCPCS: 36415; 80076; 82565; 84520

== ENCOUNTER 2023-05-11 10:30 | Outpatient (CLI) | payer MEDICARE, OTHER ==
[2023-05-11 10:59] LABS: ALBUMIN 3.9 g/dL (3.2-5.5); BILIRUBIN,DIRECT 0.19 mg/dL (0.03-0.18); BILIRUBIN,TOTAL 0.6 mg/dL (0.2-1.0); CREATININE 0.9 mg/dL (0.6-1.3); TOTAL PROTEIN 5.9 g/dL (6.4-8.9)
== END 2023-05-11 10:31 | disposition home or self-care (01) ==
LOC: LAB 10:30
PROVIDERS: ATTEND Physician Assistant Medical
DX: B35.1 Tinea unguium (principal)
CPT/HCPCS: 36415; 80076; 82565; 84520

== ENCOUNTER 2023-07-30 10:11 | Outpatient (CLI) | payer MEDICARE, OTHER ==
[2023-07-30 10:42] LABS: BILIRUBIN,DIRECT 0.19 mg/dL (0.03-0.18); BILIRUBIN,TOTAL 0.8 mg/dL (0.2-1.0); CREATININE 0.9 mg/dL (0.6-1.3); TOTAL PROTEIN 5.9 g/dL (6.4-8.9)
== END 2023-07-30 10:12 | disposition home or self-care (01) ==
LOC: LAB 10:11
PROVIDERS: ATTEND Physician Assistant Medical
DX: B35.1 Tinea unguium (principal)
CPT/HCPCS: 36415; 80076; 82565; 84520

== ENCOUNTER 2023-09-28 10:47 | Outpatient (CLI) | payer MEDICARE, OTHER ==
[2023-09-28 10:56] LABS: BASOPHILS % (AUTO) 0.3 %; EOSINOPHILS # (AUTO) 0.1 10^3/uL (0.0-0.7); EOSINOPHILS % (AUTO) 2.2 %; HCT - HEMATOCRIT 26.1 % (42.0-52.0); HGB - HEMOGLOBIN 8.4 g/dL (14.0-18.0); LYMPHOCYTES # (AUTO) 0.8 10^3/uL (1.5-3.5); MEAN CORPUSCULAR HEMOGLOBIN 33.1 pg (27.0-31.0); MEAN CORPUSCULAR HGB CONC 32.2 g/dL (32.0-36.0); MEAN CORPUSCULAR VOLUME 102.8 fL (80.0-94.0); MEAN PLATELET VOLUME 9.5 fL (7.4-11.4); MONOCYTES # (AUTO) 0.6 10^3/uL (0.0-1.0); MONOCYTES % (AUTO) 10.1 %; NEUTROPHILS # (AUTO) 4.7 10^3/uL (1.5-6.6); NEUTROPHILS % (AUTO) 74.1 %; PLT - PLATELET COUNT 206 10^3/uL (130-450); RED BLOOD COUNT 2.54 10^6/uL (4.70-6.10); RED CELL DISTRIBUTION WIDTH 15.2 % (12.0-15.0); WHITE BLOOD COUNT 6.3 x10^3/uL (4.8-10.8)
[2023-09-28 11:09] LABS: ALBUMIN 3.6 g/dL (3.2-5.5); ALBUMIN/GLOBULIN RATIO 2.1 (1.0-2.2); BILIRUBIN,TOTAL 0.4 mg/dL (0.2-1.0); CALCIUM 8.9 mg/dL (8.5-10.3); CREATININE 0.9 mg/dL (0.6-1.3); POTASSIUM 3.9 mmol/L (3.5-4.5); TOTAL PROTEIN 5.3 g/dL (6.4-8.9)
== END 2023-09-28 10:48 | disposition home or self-care (01) ==
LOC: LAB 10:47
PROVIDERS: ATTEND Nurse Practitioner
DX: R19.7 Diarrhea, unspecified (principal)
CPT/HCPCS: 36415; 80053; 82150; 83690; 85025

== ENCOUNTER 2023-09-28 20:31 | Outpatient (CLI) | payer MEDICARE, OTHER | END 2023-09-28 23:59 | disposition short-term general hospital (02) | LOC: EMS 20:31 | PROVIDERS: ATTEND Nurse Practitioner | DX: K92.2 Gastrointestinal hemorrhage, unspecified (principal); D64.9 Anemia, unspecified; R10.9 Unspecified abdominal pain | CPT/HCPCS: A0425; A0426 ==

== ENCOUNTER 2023-10-03 10:45 | Outpatient (CLI) | payer MEDICARE, OTHER ==
[2023-10-03 10:57] LABS: ABSOLUTE RETICS # AUTO 0.156 10^6/uL (0.020-0.110); BASOPHILS % (AUTO) 0.3 %; EOSINOPHILS # (AUTO) 0.2 10^3/uL (0.0-0.7); EOSINOPHILS % (AUTO) 3.5 %; HCT - HEMATOCRIT 27.8 % (42.0-52.0); HGB - HEMOGLOBIN 8.7 g/dL (14.0-18.0); LYMPHOCYTES # (AUTO) 0.8 10^3/uL (1.5-3.5); LYMPHOCYTES % (AUTO) 12.6 %; MEAN CORPUSCULAR HEMOGLOBIN 33.2 pg (27.0-31.0); MEAN CORPUSCULAR HGB CONC 31.3 g/dL (32.0-36.0); MEAN CORPUSCULAR VOLUME 106.1 fL (80.0-94.0); MEAN PLATELET VOLUME 9.6 fL (7.4-11.4); MONOCYTES # (AUTO) 0.8 10^3/uL (0.0-1.0); MONOCYTES % (AUTO) 13.2 %; NEUTROPHILS # (AUTO) 4.2 10^3/uL (1.5-6.6); NEUTROPHILS % (AUTO) 70.1 %; PLT - PLATELET COUNT 214 10^3/uL (130-450); RED BLOOD COUNT 2.62 10^6/uL (4.70-6.10); RED CELL DISTRIBUTION WIDTH 15.3 % (12.0-15.0); RETICULOCYTE COUNT % (AUTO) 5.95 % (0.5-2.3)
== END 2023-10-03 10:46 | disposition home or self-care (01) ==
LOC: LAB 10:45
PROVIDERS: ATTEND Family Medicine
DX: D62 Acute posthemorrhagic anemia (principal)
CPT/HCPCS: 36415; 85025; 85045

== ENCOUNTER 2023-11-16 08:59 | Outpatient (CLI) | payer MEDICARE, OTHER ==
[2023-11-16 09:47] LABS: ALBUMIN 3.8 g/dL (3.2-5.5); ALBUMIN/GLOBULIN RATIO 1.8 (1.0-2.2); ALKALINE PHOSPHATASE 69 IU/L (42-121); ALT ALANINE AMINOTRANSFERASE 9 IU/L (10-60); AST ASPARTATE AMINOTRANSFERASE 14 IU/L (10-42); BILIRUBIN,TOTAL 0.5 mg/dL (0.2-1.0); BUN - BLOOD UREA NITROGEN 31 mg/dL (6-20); CALCIUM 9.3 mg/dL (8.5-10.3); CARBON DIOXIDE - CO2 29 mmol/L (21-32); CHLORIDE 106 mmol/L (101-111); CHOL/HDL RATIO 1.9 (<5.0); CHOLESTEROL 74 mg/dL; CREATININE 0.9 mg/dL (0.6-1.3); GFR - MDRD 80 (>89); GLUCOSE 112 mg/dL (74-104); HDL CHOLESTEROL 40 mg/dL; LDL CHOLESTEROL,CALCULATED 25 mg/dL; LDL/HDL RATIO 0.6 (<3.6); POTASSIUM 4.1 mmol/L (3.5-4.5); SODIUM 138 mmol/L (135-145); TOTAL PROTEIN 5.9 g/dL (6.4-8.9); TRIGLYCERIDES 47 mg/dL (48-352); VLDL CHOLESTEROL 9 mg/dL
[2023-11-16 10:01] LABS: ABSOLUTE RETICS # AUTO 0.029 10^6/uL (0.020-0.110); BASOPHILS % (AUTO) 0.4 %; EOSINOPHILS # (AUTO) 0.2 10^3/uL (0.0-0.7); HCT - HEMATOCRIT 36.5 % (42.0-52.0); HGB - HEMOGLOBIN 11.4 g/dL (14.0-18.0); LYMPHOCYTES # (AUTO) 0.7 10^3/uL (1.5-3.5); LYMPHOCYTES % (AUTO) 13.6 %; MEAN CORPUSCULAR HEMOGLOBIN 29.8 pg (27.0-31.0); MEAN CORPUSCULAR HGB CONC 31.2 g/dL (32.0-36.0); MEAN CORPUSCULAR VOLUME 95.5 fL (80.0-94.0); MONOCYTES # (AUTO) 0.5 10^3/uL (0.0-1.0); MONOCYTES % (AUTO) 9.1 %; NEUTROPHILS % (AUTO) 73.7 %; PLT - PLATELET COUNT 193 10^3/uL (130-450); RED BLOOD COUNT 3.82 10^6/uL (4.70-6.10); RED CELL DISTRIBUTION WIDTH 13.4 % (12.0-15.0); RETICULOCYTE COUNT % (AUTO) 0.77 % (0.5-2.3); WHITE BLOOD COUNT 5.4 x10^3/uL (4.8-10.8)
[2023-11-16 10:05] LABS: THYROID STIMULATING HORMONE 1.29 uIU/mL (0.34-5.60)
== END 2023-11-16 09:00 | disposition home or self-care (01) ==
LOC: LAB 08:59
PROVIDERS: ATTEND Family Medicine
DX: D62 Acute posthemorrhagic anemia (principal); Z86.79 Personal history of other diseases of the circulatory system; M54.16 Radiculopathy, lumbar region; M17.0 Bilateral primary osteoarthritis of knee; F11.20 Opioid dependence, uncomplicated; K21.9 Gastro-esophageal reflux disease without esophagitis; I10 Essential (primary) hypertension; G25.81 Restless legs syndrome
CPT/HCPCS: 36415; 80053; 80061; 83721; 84153; 84443; 85025; 85045